=== PATIENT | male | born 1985 | race African-American/Black ===

== ENCOUNTER 2017-03-22 18:25 | Emergency (ER) | payer SELFPAY ==
[2017-03-22 19:49] VITALS: BP 121/78
--- NOTE | 2017-03-23 04:12 | ED Physician Documentation ---
Abdominal Pain - HISTORIAN Historian: patient - HPI Stated Complaint: vomiting after medication Chief Complaint: Abdominal Pain Additonal Information: 31 yo M who present with nausea and emesis that started after eating burger following his tooth extraction this morning. No fever or chills reported. Emesis is non bloody. He has h/o penicillin allergy. Onset: hours Context: other (no) Quality: none - ROS CONST: no problems GI/: other (nausea and emesis) CVS/RESP: none EYES/ENT: none MS/SKIN/LYMPH: none NEURO/PSYCH: none - SOCIAL HX Smoking History: cigarettes - FAMILY HX Family History: none - PAST HX Past History: none Home Medications: Ambulatory Orders Medication Instructions Recorded Promethazine HCl [Phenergan] 25 mg PO Q6 PRN #15 tablet 08/04/14 Allergies/Adverse Reactions: Allergies Allergy/AdvReac Type Severity Reaction Status Date / Time No Known Allergies Allergy Verified 08/04/14 10:06 - VITAL SIGNS Vital Signs: Vital Signs Temp Pulse Resp BP Pulse Ox 98.2 F 77 16 121/78 98 03/22/17 19:48 03/22/17 19:48 03/22/17 19:48 03/22/17 19:48 03/22/17 19:48 - REVIEWED ASSESSMENTS Nursing Assessment Reviewed: Yes Vitals Reviewed: Yes Progress - Results/Orders Results/Orders: noted to have normal exam -- will d/c pt on Zofran to help nausea and emesis Abdominal Pain Physical Exam - Physical Exam General Appearance: no acute distress EENT: eye inspection normal, ENT inspection normal, pharynx normal, no signs of dehydration NECK: normal inspection, thyroid normal, supple RESPIRATORY: no resp distress CVS: reg rate & rhythm, heart sounds normal, equal pulses, no gallop, PMI nml, no JVD ABDOMEN: soft, no organomegaly, normal bowel sounds RECTAL: normal exam, normal rectal tone BACK: normal inspection, no CVA tenderness SKIN: warm/dry, normal color EXTREMITIES: non-tender, normal range of motion NEURO: oriented X3, CN's nml as tested, motor nml, sensation nml Vital Signs: Vital Signs Temp Pulse Resp BP Pulse Ox 98.2 F 77 16 121/78 98 03/22/17 19:48 03/22/17 19:48 03/22/17 19:48 03/22/17 19:48 03/22/17 19:48 Discharge Clincal Impression: Nausea and vomiting in adult Referrals: Primary Doctor,No [Primary Care Provider] - 2 Days Home Medications: Ambulatory Orders Promethazine HCl [Phenergan] 25 mg PO Q6 PRN #15 tablet 08/04/14 Condition: Stable Disposition: 01 HOME, SELF-CARE Decision to Admit: NO Decision Time: 21:00
== END 2017-03-22 19:32 | disposition home or self-care (01) ==
LOC: ED 18:25
DX: R11.2 Nausea with vomiting, unspecified (principal)
CPT/HCPCS: 99283

== ENCOUNTER 2017-11-23 18:41 | Emergency (ER) | payer SELFPAY ==
[2017-11-23 19:37] LABS: MEAN CORPUSCULAR HEMOGLOBIN 31.8 pg (28.0-34.0); MEAN CORPUSCULAR VOLUME 94.4 fl (80.0-100.0)
[2017-11-23] MEDS ORDERED: 0.9 % SODIUM CHLORIDE 1,000 ML IV ONE ×3 (19:41→21:18)
[2017-11-23 19:45] LABS: eGFR (African) > 60; eGFR (Non-African) > 60
[2017-11-23 20:03] LABS: MEAN CORPUSCULAR VOLUME 92.6 fl (80.0-100.0)
--- NOTE | 2017-11-23 20:48 | Diagnostic Imaging Report ---
HIEN CORREA (HOME HEALTH TRAVEL PT) - ER [facility] [address] [facility].[address] [address] Report Submission Date: Nov 23, 2017 8:47:26 PM WHARF LABORER Patient Study Name: BELLA AVITIA Date: Nov 23, 2017 8:25:18 PM WHARF LABORER Modality Type: CT\SR Gender: M Description: CT A/P W/ CONTRAST : 84 Institution: [facility] Physician: HIEN CORREA (TINA) - ER HISTORY: 32-year-old with abdominal pain and leukocytosis. COMPARISON: None available. TECHNIQUE: Helical CT images of the abdomen and pelvis were performed with 94 ml Omnipaque IV contrast. Sagittal and coronal reformatted images were obtained. FINDINGS: CT abdomen: The lung bases are clear. The liver may be diffusely fatty infiltrated. No intrahepatic biliary ductal dilatation or suspicious liver mass. The spleen, pancreas, kidneys, gallbladder, and adrenal glands are unremarkable. No abdominal aortic aneurysm. CT pelvis: No abnormal bowel dilatation, free air, free fluid, or suspicious adenopathy. The appendix and urinary bladder are normal in appearance. There is lower lumbar degenerative disc disease. IMPRESSION: 1. No acute process is identified in the abdomen or pelvis. 2. Possible diffuse fatty infiltration of the liver. 3. Lower lumbar degenerative disc disease. Electronically signed on Nov 23, 2017 8:47:26 PM WHARF LABORER by: Phan BLOOM
--- NOTE | 2017-11-23 20:48 | Diagnostic Imaging Report ---
HIEN CORREA (HUMAN SERVICE TECHNICIAN) - ER [facility] [address] [address] Report Submission Date: Nov 23, 2017 8:33:10 PM [employer]ICENSED INS[employer]ANCE SALES AGENT Patient Study Name: BELLA AVITIA Date: Nov 23, 2017 8:15:17 PM LICENSED INSURANCE SALES AGENT Modality Type: DX Gender: M Description: CHEST : 84 Institution: [facility] Physician: HIEN CORREA (TINA) - ER HISTORY: 32-year-old male with cough and chest pain. COMPARISON: None available TECHNIQUE: 2 views of the chest were performed. FINDINGS: There are opacities overlying the right upper chest, likely outside of the patient. No pneumothorax, or infiltrates, pleural effusions, or pulmonary edema. The heart is not enlarged. IMPRESSION: Opacities overlying the right lung apex are likely outside of the patient. The lungs are otherwise clear. Electronically signed on Nov 23, 2017 8:33:10 PM LICENSED INSURANCE SALES AGENT by: Phan BLOOM
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
[2017-11-23 21:42] VITALS: BP 104/63
[2017-11-24 07:07] LABS: APPEARANCE,URINE CLEAR (CLEAR); COLOR,URINE YELLOW (YELLOW); OCCULT BLOOD,URINE NEGATIVE (NEGATIVE); PH URINE 5.5 (5.0 - 8.0); UROBILINOGEN URINE 0.2 Eu (0.2-1.0)
[2017-11-24 08:23] LABS: MONOCYTES % 4 % (0-11); SEGMENTED NEUTROPHILS % 90 % (39-79)
[2017-11-25 16:11] LABS: CANNABINOIDS NON NEGATIVE ng/mL (< 50); METHYLENEDIOXYMETHAMPHETAMINE NEGATIVE ng/mL (<500)
[2017-11-29 09:50] LABS: CANNABINOIDS CONFIRMATION Negative ng/mL (<15)
== END 2017-11-23 21:35 | disposition short-term general hospital (02) ==
LOC: ED 18:41
DX: D72.828 Other elevated white blood cell count (principal)
CPT/HCPCS: 71046; 74177; 80053; 80320; 80377; 81002; 83605; 84484; 85025; 87040; 93005; J7030; 87186; 96365; 99284; Q9967; G0480; G0481; S1016

== ENCOUNTER 2017-12-27 22:32 | Emergency (ER) | payer SELFPAY ==
[2017-12-27] MEDS: 0.9 % SODIUM CHLORIDE 1,000 ML IV ONE (22:45)
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
[2017-12-27] MEDS: NALOXONE HCL 0.4 MG/ML AMP IVP ONE (22:55)
[2017-12-27 23:02] LABS: BASOPHILS % 0.2 (0.0-1.5); MEAN CORPUSCULAR HEMOGLOBIN 31.7 pg (28.0-34.0); MEAN CORPUSCULAR VOLUME 93.7 fl (80.0-100.0)
[2017-12-27 23:10] LABS: MONOCYTES % 4.7 % (0.0-11.0); NEUTROPHILS # 2.4 # k/uL (1.4-7.7)
[2017-12-27 23:15] LABS: eGFR (African) > 60; eGFR (Non-African) > 60
[2017-12-28] MEDS: 0.9 % SODIUM CHLORIDE 1,000 ML IV ONE (00:10)
[2017-12-28 00:29] VITALS: BP 100/64
[2017-12-28 09:04] LABS: CANNABINOIDS NEGATIVE ng/mL (< 50)
[2017-12-28 09:05] LABS: APPEARANCE,URINE CLEAR (CLEAR); COLOR,URINE YELLOW (YELLOW); METHYLENEDIOXYMETHAMPHETAMINE NEGATIVE ng/mL (<500); OCCULT BLOOD,URINE NEGATIVE (NEGATIVE); PH URINE 5.5 (5.0 - 8.0); UROBILINOGEN URINE 0.2 Eu (0.2-1.0)
== END 2017-12-28 00:15 | disposition short-term general hospital (02) ==
LOC: ED 22:32
DX: F14.10 Cocaine abuse, uncomplicated (principal); F11.10 Opioid abuse, uncomplicated; R45.851 Suicidal ideations; V89.2XXA Person injured in unspecified motor-vehicle accident, traffic, initial encounter; Y93.9 Activity, unspecified; Y92.89 Other specified places as the place of occurrence of the external cause
CPT/HCPCS: 80053; 80320; 80377; 81002; 84484; 85025; 93005; J2310; J7030; 96365; 96375; 99284; G0480; G0481